=== PATIENT | female | born 2000 | race African-American/Black ===

== ENCOUNTER 2023-12-28 21:34 | Inpatient (IN) | payer OTHER, SELFPAY ==
[2023-12-28 22:05] LABS: Absolute Basophils 0.3 K/uL (0-0.5); Absolute Lymphocytes (CBC) 0.3 K/uL (0.7-4.9); Absolute Neutrophil 40.2 K/uL (1.8-8.0); Basophils % 0.7 % (0-1.3); Hematocrit 26.6 % (36.0-45.0); Hemoglobin 7.9 g/dL (12.0-15.0); Lymphocytes % 0.8 % (15.3-44.8); MCH 18.7 pg (27.0-35.0); MCHC 29.5 g/dL (32.0-36.0); MCV 63.3 fL (80-100); MPV 8.1 fL (7.6-11.3); Monocytes % 2.3 % (3.3-12.3); Neutrophils % 96.2 % (41.7-73.7); Platelets 528 thou/uL (152-406); RBC Red Blood Cell Count 4.21 M/uL (3.86-4.86); Red Cell Distribution Width 17.8 % (12.1-15.2)
[2023-12-28] MEDS ORDERED: ONDANSETRON 4 MG/2 ML VIAL ONE (22:09)
[2023-12-28] MEDS ORDERED: NA CHLORIDE 0.9% 1,000 ML ONE ×2 (22:09→22:48)
[2023-12-28] MEDS ORDERED: FAMOTIDINE 20 MG/2 ML VIAL IV ONE (22:09)
[2023-12-28 22:19] LABS: Albumin 4.2 g/dL (3.4-5.0); Albumin/Globulin Ratio 0.8 (1.1-1.8); Anion Gap 11.5 mEq/L (5.0-15.0); Bilirubin Total 0.7 mg/dL (0.2-1.0); Globulin 5.2 g/dL (2.3-3.5); Potassium 3.5 mEq/L (3.5-5.1); Protein, Total 9.4 g/dL (6.4-8.2)
[2023-12-28 22:46] LABS: Band Neutrophils 5 % (0-1); Differential Total Cells Count 100; Lymphocytes 2 % (15-42); Monocytes 2 % (0-10); Segmented Neutrophils 90 % (40-80)
[2023-12-28 22:47] LABS: Metamyelocytes 1 % (0-0); Platelet Estimate INCR; Toxic Granulation 1+
[2023-12-28 22:48] LABS: Blood Morphology Comment NOTED (NOT SEEN); Hypochromasia 1+; Microcytosis 2+; Polychromasia 2+
[2023-12-28 22:56] LABS: Specific Gravity 1.023 (1.005-1.030); Urine Bacteria <20 /HPF (<20); Urine Bilirubin NEGATIVE (Negative); Urine Blood Negative (Negative); Urine Clarity Extremely Turbid (Clear); Urine Color Light-Orange (Yellow); Urine Culture Reflex Order REFLEXED; Urine Glucose NEGATIVE (Negative); Urine Ketones TRACE (Negative); Urine Microscopic Reflex YN ORDER UMIC; Urine Mucus 2+ /HPF (None Seen); Urine Nitrite NEGATIVE (Negative); Urine Protein 1+ (Negative); Urine RBC <5 /HPF (None Seen); Urine Urobilinogen Normal (Normal); Urine WBC 20-50 /HPF (<5)
[2023-12-28 23:50] LABS: PT Prothrombin Time 17.1 SECONDS (9.5-12.5); PTT, Activated Partial Thromb 25.9 SECONDS (24.3-36.9); Protime INR 1.58
--- NOTE | 2023-12-29 00:55 | ER ---
Nurse's Notes [facility] Name: Yvonne Pereyra Age: 23 yrs Sex: Female : 2000 Arrival Date: 12/28/2023 Time: 21:34 Bed 6 Private MD: Diagnosis: Infectious gastroenteritis and colitis, unspecified;Severe sepsis without septic shock Presentation: 12/27 21:37 Chief complaint: EMS states: Pt reports N/V/D since this morning. Pt was given 4mg of jb4 zofran and started on 1L of LR via 20g to the RAC. Coronavirus screen: At this time, the client does not indicate any symptoms associated with coronavirus-19. Ebola Screen: No symptoms or risks identified at this time. Initial Sepsis Screen: Does the patient meet any 2 criteria? HR > 90 bpm. Yes Does the patient have a suspected source of infection? No. Patient's initial sepsis screen is negative. Risk Assessment: Do you want to hurt yourself or someone else? Patient reports no desire to harm self or others. Onset of symptoms was December 28, 2023. Transition of care: patient was not received from another setting of care. 21:37 Method Of Arrival: Ambulatory jb4 21:37 Acuity: VIVEK 3 jb4 Triage Assessment: 21:39 General: Appears in no apparent distress. comfortable, Behavior is calm, cooperative, jb4 appropriate for age. Pain: Denies pain. Neuro: Level of Consciousness is awake, alert, obeys commands, Oriented to person, place, time, situation. Cardiovascular: Patient's skin is warm and dry. Respiratory: Airway is patent Respiratory effort is even, unlabored, Respiratory pattern is regular, symmetrical. GI: Reports diarrhea, nausea, vomiting. Historical: - Allergies: 21:39 No Known Allergies; jb4 - PMHx: 21:39 None; jb4 - PSHx: 21:39 None; jb4 - Immunization history:: Adult Immunizations up to date. - Infectious Disease History:: Denies. - Social history:: Smoking status: Patient denies any tobacco usage or history of. Screenin:41 [facility] ED Fall Risk Assessment (Adult) History of falling in the last 3 months, tm6 including since admission No falls in past 3 months (0 pts). [facility] ED Fall Risk Assessment (Adult) Confusion or Disorientation No (0 pts) Intoxicated or Sedated No (0 pts) Impaired Gait No (0 pts) Mobility Assist Device Used No (0 pt) Altered Elimination No (0 pt) Score/Fall Risk Level 0 - 2 = Low Risk Oriented to surroundings, Maintained a safe environment. Abuse screen: Denies threats or abuse. Denies injuries from another. Nutritional screening: No deficits noted. Tuberculosis screening: No symptoms or risk factors identified. Assessment: 21:41 General: Appears in no apparent distress. Behavior is calm, cooperative. Pain: tm6 Complains of pain in right upper quadrant and right lower quadrant Pain currently is 7 out of 10 on a pain scale. Quality of pain is described as aching, Also complains of nausea. Neuro: No deficits noted. Level of Consciousness is awake, alert, obeys commands, Oriented to person, place, time, situation. Cardiovascular: No deficits noted. Patient's skin is warm and dry. Respiratory: Airway is patent Respiratory effort is even, unlabored, Respiratory pattern is regular, symmetrical. GI: Abdomen is flat, non-distended, Abd is soft Abdomen is tender to palpation in right upper quadrant and right lower quadrant Reports lower abdominal pain, upper abdominal pain, diarrhea, nausea, vomiting. : No signs and/or symptoms were reported regarding the genitourinary system. EENT: No signs and/or symptoms were reported regarding the EENT system. Derm: No signs and/or symptoms reported regarding the dermatologic system. Musculoskeletal: No signs and/or symptoms reported regarding the musculoskeletal system. 22:52 Reassessment: Patient and/or family updated on plan of care and expected duration. Pain tm6 level reassessed. Patient is alert, oriented x 3, equal unlabored respirations, skin warm/dry/pink. 23:49 Reassessment: Patient and/or family updated on plan of care and expected duration. Pain tm6 level reassessed. Patient is alert, oriented x 3, equal unlabored respirations, skin warm/dry/pink. 12/28 00:51 Reassessment: Patient and/or family updated on plan of care and expected duration. Pain tm6 level reassessed. Patient is alert, oriented x 3, equal unlabored respirations, skin warm/dry/pink. Vital Signs: 12/27 21:35 BP 140 / 73; Pulse 99; Resp 18 S; Temp 98.7; Pulse Ox 100% on R/A; rv1 21:37 Weight 81.65 kg; Height 5 ft. 4 in. ; jb4 22:52 BP 128 / 62; Pulse 101; Pulse Ox 100% on R/A; tm6 23:48 Pulse 103; Pulse Ox 100% ; tm6 23:49 BP 132 / 77; tm6 12/28 00:50 BP 135 / 78; Pulse 114; Pulse Ox 100% on R/A; tm6 04 21:37 Body Mass Index 30.90 (81.65 kg, 162.56 cm) jb4 ED Course: 12/27 21:35 Patient arrived in ED. rv1 21:39 Triage completed. jb4 21:39 Arm band placed on right wrist. jb4 21:41 Jil Duron, MARIE is Primary Nurse. tm6 21:41 Patient has correct armband on for positive identification. Placed in gown. Bed in low tm6 position. Call light in reach. Side rails up X2. Provided Education on: plan of care. Client placed on continuous cardiac and pulse oximetry monitoring. NIBP monitoring applied. Pulse ox on. NIBP on. Door closed. Noise minimized. Warm blanket given. 21:41 Maintain EMS IV. Dressing intact. Good blood return noted. Site clean \T\ dry. Gauge \T\ tm 6 site: 20g RAC. 21:49 [facility] sb4 21:49 Richard Romero MD is Attending Physician. sb4 21:55 CBC with Diff Sent. tm6 21:55 CMP Sent. tm6 21:55 Lipase Sent. tm6 22:47 Urinalysis w/ reflexes Sent. tm6 22:47 Test, Urine Sent. tm6 23:28 Blood Culture Adult (2) Sent. rv1 23:28 Lactate w/ 2H reflex if indic. Sent. rv1 23:28 PT-INR Sent. rv1 23:28 Ptt, Activated Sent. rv1 23:42 CT Abd/Pelvis - IV Contrast Only In Process Unspecified. EDMS 12/28 00:11 Notified Nurse Practitioner and/or Physician [employer] of a critical lab result(s), tm6 Lactate 2.6. 00:53 Roby Bhakta MD is Hospitalizing Provider. sb4 01:52 No provider procedures requiring assistance completed. Patient admitted, IV remains in tm6 place. Administered Medications: 12/27 22:17 Drug: NS 0.9% IV 1000 ml IV at 1 bolus Per protocol; 1000 mL bolus Route: IV; Rate: 1 tm6 bolus; Site: right antecubital; 12/28 01:27 Follow up: IV Status: Completed infusion; IV Intake: 1000ml tm6 12/27 22:17 Drug: Famotidine IVP 20 mg IVP once; dilute with 10 mL 0.9% NaCl; give over 2 minutes tm6 Route: IVP; Site: right antecubital; 22:18 Drug: Ondansetron IVP 4 mg IVP once; over 2 minutes Route: IVP; Site: right antecubital;tm6 22:52 Drug: NS 0.9% IV 1000 ml IV at 1 bolus Per protocol; 1000 mL bolus Route: IV; Rate: 1 tm6 bolus; Site: right antecubital; 12/28 01:27 Follow up: IV Status: Completed infusion; IV Intake: 1000ml tm6 01:10 Drug: Rocephin IV 1 grams IV at calculated rate once; Given slow IV push per pharmacy tm6 instructions Route: IV; Rate: calculated rate; Site: right antecubital; 01:10 Drug: metroNIDAZOLE IVPB 500 mg 100 ml IVPB at 200 ml/hr once over 30 mins Volume: 100 tm6 ml; Route: IVPB; Rate: 200 ml/hr; Infused Over: 30 mins; Site: right antecubital; Medication: 12/27 21:41 VIS not applicable for this client. tm6 Intake: 12/28 01:27 IV: 1000ml; Total: 1000ml. tm6 01:27 IV: 1000ml; Total: 2000ml. tm6 Outcome: 00:54 Decision to Hospitalize by Provider. sb4 01:52 Admitted to ER Hold. Please see [facility] for further documentation. tm6 01:52 Condition: stable 01:52 Instructed on the need for admit, 12:23 Patient left the ED. iw Signatures: Dispatcher [employer] Gay Hodge RN RN iw Bryson, James, RN RN jbPoppy Villegas, PAWarner PA-C sb4 Barbra Nur rv1 Jil Duron RN RN tm6
--- NOTE | 2023-12-29 00:55 | EDPHYS ---
Physician Documentation [facility] Name: Yvonne Pereyra Age: 23 yrs Sex: Female : 2000 Arrival Date: 12/28/2023 Time: 21:34 Bed 6 Private MD: ED Physician Richard Romero HPI: 12/27 22:17 This 23 yrs old Black Female presents to ER via Ambulatory with complaints of sb4 Nausea/Vomiting/Diarrhea. 22:17 The patient presents to the emergency department with nausea, vomiting, diarrhea, sb4 abdominal pain. Onset: The symptoms/episode began/occurred this morning. Possible causes: unknown. The symptoms are aggravated by nothing. The symptoms are alleviated by nothing. The patient has not experienced similar symptoms in the past. The patient has not recently seen a physician. Historical: - Allergies: 21:39 No Known Allergies; jb4 - PMHx: 21:39 None; jb4 - PSHx: 21:39 None; jb4 - Immunization history:: Adult Immunizations up to date. - Infectious Disease History:: Denies. - Social history:: Smoking status: Patient denies any tobacco usage or history of. ROS: 22:17 Constitutional: Negative for fever, chills, and weight loss, sb4 22:17 Abdomen/GI: Positive for abdominal pain, nausea, vomiting, and diarrhea, 22:17 All other systems are negative, Exam: 22:17 Head/Face: Normocephalic, atraumatic. Eyes: Extra-ocular motions intact. Periorbital sb4 areas with no swelling, redness, or edema. ENT: Mucous membranes moist. Cardiovascular: Regular rate and rhythm with a normal S1 and S2. Respiratory: Lungs have equal breath sounds bilaterally, clear to auscultation and percussion. No rales, rhonchi or wheezes noted. No increased work of breathing, no retractions or nasal flaring. Abdomen/GI: Soft, non-tender, no distension. Skin: Warm, dry with normal turgor. Normal color with no rashes, no lesions, and no evidence of cellulitis. MS/ Extremity: Pulses equal, no cyanosis. Neurovascular intact. Full, normal range of motion. Neuro: Awake and alert, GCS 15, oriented to person, place, time, and situation. Motor strength 5/5 in all extremities. Sensory grossly intact. 22:17 Constitutional: The patient appears alert, awake, uncomfortable, Vital Signs: 21:35 BP 140 / 73; Pulse 99; Resp 18 S; Temp 98.7; Pulse Ox 100% on R/A; rv1 21:37 Weight 81.65 kg; Height 5 ft. 4 in. ; jb4 22:52 BP 128 / 62; Pulse 101; Pulse Ox 100% on R/A; tm6 23:48 Pulse 103; Pulse Ox 100% ; tm6 23:49 BP 132 / 77; tm6 04 00:50 BP 135 / 78; Pulse 114; Pulse Ox 100% on R/A; tm6 12/27 21:37 Body Mass Index 30.90 (81.65 kg, 162.56 cm) jb4 MDM: 12/27 21:49 Patient medically screened. sb4 22:17 Differential diagnosis: gastritis, gastroenteritis. sb4 12/28 00:53 Data reviewed: vital signs, nurses notes, lab test result(s), radiologic studies, I sb4 have discussed the patient's presentation/case with the attending Emergency Department Physician; and as a result, I will admit patient. Consideration of Admission/Observation Patient was admitted/placed on observation. Counseling: I had a detailed discussion with the patient and/or guardian regarding the historical points, exam findings, and any diagnostic results supporting the discharge/admit diagnosis, lab results, radiology results, the need for further work-up and treatment in the hospital. 12/27 21:49 Order name: CBC with Diff; Complete Time: 22:58 4 12/27 21:49 Order name: CMP; Complete Time: 22:28 sb4 12/27 21:49 Order name: Lipase; Complete Time: 22:28 sb4 12/27 21:49 Order name: Test, Urine; Complete Time: 22:58 sb4 12/27 21:49 Order name: Urinalysis w/ reflexes; Complete Time: 22:59 sb4 12/27 22:10 Order name: Manual Differential; Complete Time: 22:58 EDMS 12/27 22:59 Order name: Blood Culture Adult (2); Complete Time: 10:50 4 12/27 22:59 Order name: Lactate w/ 2H reflex if indic.; Complete Time: 00:11 sb4 12/27 22:59 Order name: PT-INR; Complete Time: 23:53 sb4 12/27 22:59 Order name: Ptt, Activated; Complete Time: 23:53 sb4 12/27 23:01 Order name: Urine Culture; Complete Time: 10:50 EDMS 12/28 01:15 Order name: CBC with Automated Diff EDMS 12/28 01:15 Order name: CBC with Automated Diff; Complete Time: 10:50 EDMS 12/28 01:15 Order name: Comprehensive Metabolic Panel EDMS 12/28 01:15 Order name: Comprehensive Metabolic Panel; Complete Time: 10:50 EDMS 12/28 02:45 Order name: Lactate Sepsis 2 HR Follow-up; Complete Time: 10:50 EDMS 12/28 02:51 Order name: Magnesium; Complete Time: 10:50 EDMS 12/28 02:51 Order name: Thyroid Stimulating Hormone; Complete Time: 10:50 EDMS 12/28 02:51 Order name: Transferrin Sat/Iron Binding; Complete Time: 10:50 EDMS 12/28 09:20 Order name: CBC with Automated Diff; Complete Time: 10:50 EDMS 12/28 09:20 Order name: Basic Metabolic Panel; Complete Time: 10:50 EDMS 12/28 09:20 Order name: Magnesium; Complete Time: 10:50 EDMS 12/28 09:54 Order name: Manual Differential; Complete Time: 10:50 EDMS 12/28 09:54 Order name: CBC Smear Scan; Complete Time: 10:50 EDMS 12/28 10:37 Order name: Type and Screen EDMS 12/27 22:44 Order name: CT Abd/Pelvis - IV Contrast Only sb4 12/28 00:56 Order name: Chest Pa And Lat (2 Views) XRAY sb4 12/27 21:49 Order name: IV Saline Lock; Complete Time: 21:52 sb4 12/27 21:49 Order name: Labs collected and sent; Complete Time: 21:52 sb4 Administered Medications: 12/27 22:17 Drug: NS 0.9% IV 1000 ml IV at 1 bolus Per protocol; 1000 mL bolus Route: IV; Rate: 1 tm6 bolus; Site: right antecubital; 12/28 01:27 Follow up: IV Status: Completed infusion; IV Intake: 1000ml tm6 12/27 22:17 Drug: Famotidine IVP 20 mg IVP once; dilute with 10 mL 0.9% NaCl; give over 2 minutes tm6 Route: IVP; Site: right antecubital; 22:18 Drug: Ondansetron IVP 4 mg IVP once; over 2 minutes Route: IVP; Site: right antecubital;tm6 22:52 Drug: NS 0.9% IV 1000 ml IV at 1 bolus Per protocol; 1000 mL bolus Route: IV; Rate: 1 tm6 bolus; Site: right antecubital; 12/28 01:27 Follow up: IV Status: Completed infusion; IV Intake: 1000ml tm6 01:10 Drug: Rocephin IV 1 grams IV at calculated rate once; Given slow IV push per pharmacy tm6 instructions Route: IV; Rate: calculated rate; Site: right antecubital; 01:10 Drug: metroNIDAZOLE IVPB 500 mg 100 ml IVPB at 200 ml/hr once over 30 mins Volume: 100 tm6 ml; Route: IVPB; Rate: 200 ml/hr; Infused Over: 30 mins; Site: right antecubital; Disposition: 02:33 Co-signature as Attending Physician, Richard Romero MD I agree with the assessment sp4 and plan of care. I reviewed the patient's care provided by Advanced Practice Provider \T\ agree w/ the diagnosis \T\ care plan. I personally saw the pt \T\ performed a substantive portion of the visit, incldng all aspects of the (History/Exam/Medical Decision Making). Disposition Summary: 12/29/23 00:54 Hospitalization Ordered Notes: Hospitalization Status: Observation sb4 Provider: Roby Bhakta sb4 Condition: Fair sb4 Problem: new sb4 Symptoms: are unchanged sb4 Bed/Room Type: Standard sb4 Location: Telemetry/MedSurg (Inpatient)(12/29/23 11:10) eb Room Assignment: 427(12/29/23 11:10) eb Diagnosis - Infectious gastroenteritis and colitis, unspecified sb4 - Severe sepsis without septic shock sb4 Discharge Instructions: - Discharge Summary Sheet tm6 Forms: - Medication Reconciliation Form sb4 - SBAR form sb4 - Leadership Thank You Letter sb4 Signatures: Dispatcher AmadorSylvia Cruz RN RN Berny Yang RN RN jb4 Perla Flores Wendy wm Poppy Durand PA-C PA-C sb4 Richard Romero MD MD sp4 Jil Duron RN RN tm6 Corrections: (The following items were deleted from the chart) 12/27 22:45 22:45 Abdomen Pelvis W Con+CT.RAD.BRZ ordered. EDMS EDMS 12/28 01:21 00:54 sb4 wm 01:34 01:21 420 wm cg 01:36 00:54 Telemetry/MedSurg (observation) sb4 cg 01:36 01:34 cg cg 11:10 01:36 [facility] ER HOLD cg eb 11:10 01:36 ERHOLD- cg eb
[2023-12-29] MEDS ORDERED: CEFTRIAXONE 1000 MG/VIAL ONE (01:01)
[2023-12-29] MEDS ORDERED: METRONIDAZOLE 500mg IVPB 500 MG/100 ML BAG IV ONE ×2 (01:01→08:06)
--- NOTE | 2023-12-29 01:22 | P.HP ---
Certification for Inpatient Patient admitted to: Observation With expected LOS: <2 Midnights Patient will require the following post-hospital care: None Practitioner: I am a practitioner with admitting privileges, knowledge of patient current condition, hospital course, and medical plan of care. Services: Services provided to patient in accordance with Admission requirements found in Title 42 Section 412.3 of the Code of Federal Regulations Patient History Date of Service: 12/29/23 Reason for admission: Nausea and vomiting History of Present Illness: 23-year-old female with no past medical history presents today because of recurrent nausea and vomiting as well as nonspecific abdominal pain. She states her symptoms were preceded with onset of bouts of diarrhea. Diarrhea small watery stool nonbloody, since the last 2 to 3 days. She stated abdominal pain is mild in the epigastric area associated with periods of vomiting. She denies similar episodes in the past. She denies any fever or chills. She denies any dysuria or diarrhea. She states she has a history of chronic anemia that was diagnosed since age 16. She admitted to [facility] She states she has not had a gynecological workup in the past but always have craving for ice. On arrival in the ED she was mildly tachycardic at 99 but stable BP, afebrile. EKG was unremarkable, urinalysis positive for UTI with large leukocyte esterase, CT of the abdomen shows nonspecific enteritis as well as mild thickening of the bladder consistent with cystitis. Serum WBC was elevated at 41,000, hemoglobin low at 7.9, BMP shows creatinine of 1.15. Lactic acid elevated at 2.6. She has been admitted for further management . Allergies No Known Allergies Allergy (Unverified 12/29/23 01:40) Home medications list reviewed: Yes - Past Medical/Surgical History Has patient received pneumonia vaccine in the past: No -: None Past Surgical History: Reviewed- Non-Contributory - Family History Family History: Reviewed- Non-Contributory - Social History Smoking Status: Never smoker Place of Residence: Home Review of Systems Gastrointestinal: Nausea, Vomiting, Abdominal Pain, Diarrhea Genitourinary: Frequency Neurological: Weakness Physical Examination - Physical Exam General: Alert, In no apparent distress, Oriented x3 HEENT: Atraumatic, Normocephalic, PERRLA Neck: 2+ carotid pulse no bruit, JVD not distended Respiratory: Clear to auscultation bilaterally, Normal air movement Cardiovascular: No edema, Normal pulses, Regular rate/rhythm, Normal S1 S2 Gastrointestinal: Normal bowel sounds, Soft and benign, Non-distended, No ascites, No masses Musculoskeletal: No clubbing, No tenderness Neurological: Normal gait, Normal speech, Normal strength at 5/5 x4 extr, Normal tone - Studies Laboratory Data (last 24 hrs) 12/28/23 12/28/23 12/28/23 23:20 21:53 21:53 WBC 41.80 H Hgb 7.9 L Hct 26.6 L Plt Count 528 H PT 17.1 H INR 1.58 APTT 25.9 Sodium 135 L Potassium 3.5 BUN 14 Creatinine 1.15 H Glucose 110 H Total Bilirubin 0.7 AST 10 L ALT 21 Alkaline Phosphatase 71 Lipase 16 Assessment and Plan - Problems (Diagnosis) (1) Acute sepsis Current Visit: Yes Status: Acute (2) UTI (urinary tract infection) Current Visit: Yes Status: Acute - Plan Impression Acute sepsis UTI Presumed gastroenteritis Marked leukocytosis at 41,000 Chronic anemia Acute kidney injurylikely prerenal Plan Colitis/UTIstart gentle IV fluid Cipro antibiotics with cefepime and Flagyl Follow urine culture Add Pepcid twice daily for presumed gastritis Follow stool for ova parasite if watery specimen/C. difficile SCDs Follow WBC Chronic anemiastool for occult blood Obtain iron profile May be due to heavy menorrhagia Acute kidney injuryObtain TSH Mild creatinine elevation, follow with hydration - Advance Directives Does patient have a Living Will: No Does patient have a Durable POA for Healthcare: No Physician Review: Patient Assessed, Agree with Above Assessment and Plan
[2023-12-29] MEDS: D5LR 1,000 ML IV SCH ×2 (02:00→13:55)
[2023-12-29] MEDS ORDERED: MELATONIN 5 MG TABLET PO ONE (02:05)
[2023-12-29] MEDS ORDERED: D5LR 1,000 ML IV ONE (02:05)
[2023-12-29 02:07] VITALS: BMI 30.9
[2023-12-29] MEDS ORDERED: ONDANSETRON 4 MG/2 ML VIAL ONE (02:37)
[2023-12-29] MEDS ORDERED: MORPHINE 2 MG/ML SYR ONE ×2 (02:38→08:26)
[2023-12-29] MEDS: ONDANSETRON 4 MG/2 ML VIAL IV PRN (02:45)
[2023-12-29] MEDS: MELATONIN 5 MG TABLET PO PRN (02:45)
[2023-12-29] MEDS: MORPHINE 2 MG/ML SYR IV PRN (02:45)
[2023-12-29 02:51] LABS: Iron < 10.0 ug/dL (50-170); Magnesium 1.3 mg/dL (1.6-2.4); Thyroid Stimulating Hormone 0.435 uIU/mL (0.358-3.740); Transferrin 327 mg/dL (200-360)
--- NOTE | 2023-12-29 07:10 | P.PN ---
Date of Service: 12/29/23 Subjective: tolerated some full liquids this morning no BM since admission minimal abdominal pain denies any bleeding reports heavy menstrual periods ROS: 10 point ROS as noted above, otherwise negative Physical Exam: GEN: Alert, oriented, NAD, does not appear toxic HEENT: Normal conjunctiva, sclera anicteric CV: mild sinus tachycardia 90-105, no murmur Pulm: Nonlabored respirations on room air, clear bilaterally ABD: Soft, mild diffuse tenderness, nondistended Integumentary: No rashes, no petechiae Neuro: Normal speech, normal affect vitals reviewed Problem List: Sepsis, likely secondary to suspected acute cystitis / enteritis acute on chronic anemia / Severe iron deficiency anemia mild JESUS, likely pre-renal Sepsis, likely secondary to suspected acute cystitis / enteritis Reports nonspecific abd pain with nausea/vomiting. +diarrhea for 2-3 days. now with mild abd pain; +no BM since admission CT abd (12/28): mildly prominent fluid filled loops of small bowel; possible enteritis. no obstruciton. mild wall thickening of urinary bladder; possible distention / cystitis denies UTI Symptoms suspect elevated lactate is more secondary to significant anemia and dehydration - vomiting/diarrhea leukocytosis - infectious vs reactive significantly elevated no B symptoms on ROS, no family history of cancers denies family history of sickle cell continue empiric cefepime / flagyl (12/28-) afebrile, +leukocytosis 41.8 (12/28) ID consult c-diff test pending PRN analgesics / antiemetics continue pepcid continue IV fluids full liquid diet advance as tolerated patient ate wings and drank "quite a bit" of alcohol the night before check blood smear doubt malignancy,will pursue further workup if not improved acute on chronic anemia / Severe iron deficiency anemia reports hx of chronic anemia since 16. Reports infrequent heavy mestrual bleedings but has not had gynecological workup in past. Reports always has craving for ice iron studies consistent with severe iron deficiency anemia (iron 1.3, tsat% 2.2%) last day of menstruation was ~5 days ago no obvious bleeding hgb 7.9 -> 5.7 (12/28) ; suspect initial was hemeconcentrated due to hypovolemia, and 5.7 is closer to baseline especially given how asymptomatic she is, with normal BP, and only mild tachycardia mother states she was "walking around just fine" when she (mother) had hgb of 4.8 in the past transfuse 1uPRBC. repeat H&H post transfusion avoid iv iron at this time given concern for sepsis / severe leukocytosis mild JESUS, likely pre-renal creatinine 1.15 continue IV fluids with d5/LR continue to monitor renal function Code: Full Dispo: Home, ~2 days Pending further workup / hgb stabilizes / culture results
[2023-12-29] MEDS ORDERED: CEFEPIME 1 GM/VIAL ONE (08:06)
[2023-12-29] MEDS ORDERED: NA CHLORIDE 0.9% 100 ML ONE (08:06)
[2023-12-29] MEDS ORDERED: FAMOTIDINE 20 MG/2 ML VIAL IV ONE (08:06)
[2023-12-29] MEDS: SOD FERRIC GLUC COMPLX/SUCROSE 125 MG in NA CHLORIDE 0.9% 100 ML IV SCH (08:46)
[2023-12-29] MEDS: METRONIDAZOLE 500mg IVPB 500 MG/100 ML BAG IV SCH (08:47)
[2023-12-29] MEDS: FAMOTIDINE 20 MG TAB PO SCH (08:48)
[2023-12-29] MEDS: CEFEPIME 1 GM in NA CHLORIDE 0.9% 100 ML IV SCH (08:48)
[2023-12-29 09:10] LABS: Absolute Lymphocytes (CBC) 0.9 K/uL (0.7-4.9); Absolute Monocytes 1.7 K/uL (0.1-1.3); Absolute Neutrophil 42.8 K/uL (1.8-8.0); Basophils % 0.1 % (0-1.3); Hematocrit 19.6 % (36.0-45.0); Lymphocytes % 1.9 % (15.3-44.8); MCH 18.3 pg (27.0-35.0); MCV 63.2 fL (80-100); MPV 7.7 fL (7.6-11.3); Monocytes % 3.8 % (3.3-12.3); Neutrophils % 94.2 % (41.7-73.7); Platelets 427 thou/uL (152-406)
[2023-12-29 09:19] LABS: Anion Gap 8.5 mEq/L (5.0-15.0); Magnesium 1.4 mg/dL (1.6-2.4); Potassium 3.5 mEq/L (3.5-5.1)
[2023-12-29 09:20] LABS: Hemoglobin 5.7 g/dL (12.0-15.0)
[2023-12-29 09:53] LABS: Band Neutrophils 13 % (0-1); Differential Total Cells Count 100; Lymphocytes 3 % (15-42); Metamyelocytes 3 % (0-0); Monocytes 3 % (0-10); Platelet Estimate INCR; Segmented Neutrophils 79 % (40-80); White Blood Cell Scan OK (OK)
[2023-12-29 09:54] LABS: Blood Morphology Comment NOTED (NOT SEEN); Dohle Bodies PRESENT; Hypochromasia 2+; Microcytosis 2+
[2023-12-29] MEDS ORDERED: NA CHLORIDE 0.9% 250 ML IV SCH (10:00)
[2023-12-29] MEDS ORDERED: NA CHLORIDE 0.9% 250 ML ONE (11:11)
[2023-12-29 15:41] LABS: Hematocrit 24.9 % (36.0-45.0); Hemoglobin 7.6 g/dL (12.0-15.0)
--- NOTE | 2023-12-30 08:36 | P.PN ---
Date of Service: 12/30/23 Subjective: watery BM overnight ~4-5 am; green/yellow in color Reports now feeling better afterwards felt some improvement in strength after transfusion. Able to move around more otherwise no new issues afebrile ROS: 10 point ROS as noted above, otherwise negative Physical Exam: GEN: Alert, oriented, NAD, does not appear toxic HEENT: Normal conjunctiva, sclera anicteric CV: mild sinus tachycardia 90-105, no murmur Pulm: Nonlabored respirations on room air, clear bilaterally ABD: Soft, mild lower abdominal tenderness, nondistended Integumentary: No rashes, no petechiae Neuro: Normal speech, normal affect vitals reviewed Problem List: Sepsis, likely secondary to suspected acute cystitis / enteritis acute on chronic anemia / Severe iron deficiency anemia mild JESUS, likely pre-renal; resolved Sepsis, likely secondary to suspected acute cystitis / enteritis Reports nonspecific abd pain with nausea/vomiting. +diarrhea for 2-3 days. now with mild abd pain; +no BM since admission CT abd (12/28): mildly prominent fluid filled loops of small bowel; possible enteritis. no obstruciton. mild wall thickening of urinary bladder; possible distention / cystitis suspect elevated lactate is more secondary to significant anemia and dehydration - vomiting/diarrhea leukocytosis - infectious vs reactive significantly elevated no B symptoms on ROS, no family history of cancers. denies UTI Symptoms denies family history of sickle cell blood smear favors reactive leukocytosis continue empiric cefepime / flagyl (12/28-) afebrile, leukocytosis improving ID consulted c-diff test pending PRN analgesics / antiemetics continue pepcid continue IV fluids full liquid diet; advance as tolerated patient ate wings and drank "quite a bit" of alcohol the night before admission doubt malignancy,will pursue further workup if not improved acute on chronic anemia / Severe iron deficiency anemia reports hx of chronic anemia since 16. Reports infrequent heavy mestrual bleedings but has not had gynecological workup in past. Reports always has craving for ice iron studies consistent with severe iron deficiency anemia (iron 1.3, tsat% 2.2%) last day of menstruation was ~5 days ago. no obvious bleeding noted on exam hgb down to 5.7 (12/28); suspect initial was hemeconcentrated due to hypovolemia, and 5.7 is closer to baseline especially given how asymptomatic she is, with normal BP, and only mild tachycardia mother states she was "walking around just fine" when she (mother) had hgb of 4.8 in the past s/p 1uPRBC (12/28). repeat H&H post transfusion - 7.6 hgb 7.6 -> 7.2 (12/29) watery BM overnight green/yellow in color. Denies bloody stools avoid iv iron at this time given concern for sepsis / severe leukocytosis. Given 1 bag on admission mild JESUS, likely pre-renal; resolved continue IV fluids with d5/LR continue to monitor renal function resolved Code: Full Dispo: Home, ~1-2 days Pending hgb stable / wbc improves
[2023-12-30 08:37] LABS: Absolute Basophils 0.1 K/uL (0-0.5); Absolute Eosinophils 0.3 K/uL (0-0.5); Absolute Lymphocytes (CBC) 0.6 K/uL (0.7-4.9); Absolute Monocytes 1.4 K/uL (0.1-1.3); Absolute Neutrophil 30.1 K/uL (1.8-8.0); Basophils % 0.2 % (0-1.3); Hematocrit 23.5 % (36.0-45.0); Hemoglobin 7.2 g/dL (12.0-15.0); Lymphocytes % 1.9 % (15.3-44.8); MCH 20.1 pg (27.0-35.0); MCHC 30.6 g/dL (32.0-36.0); MCV 65.7 fL (80-100); Monocytes % 4.4 % (3.3-12.3); Neutrophils % 92.5 % (41.7-73.7); Nucleated RBC Absolute Count 0.1 (0-0); Nucleated Red Blood Cells % 0.2 % (0-0); Platelets 406 thou/uL (152-406); RBC Red Blood Cell Count 3.58 M/uL (3.86-4.86); Red Cell Distribution Width 20.7 % (12.1-15.2)
[2023-12-30 09:08] LABS: Bilirubin Total 0.4 mg/dL (0.2-1.0)
[2023-12-30 09:09] LABS: Albumin 2.7 g/dL (3.4-5.0); Albumin/Globulin Ratio 0.7 (1.1-1.8); Ferritin 139.5 ng/mL (8-388); Protein, Total 6.7 g/dL (6.4-8.2)
[2023-12-30] MEDS: D5LR 1,000 ML IV SCH (15:19)
[2023-12-30] MEDS: POTASSIUM CL SA 10 MEQ TAB PO ONE (20:10)
[2023-12-30] MEDS: ACETAMINOPHEN 500 MG TAB PO PRN (22:28)
[2023-12-31 02:24] LABS: Absolute Basophils 0.1 K/uL (0-0.5); Absolute Eosinophils 0.3 K/uL (0-0.5); Absolute Lymphocytes (CBC) 0.8 K/uL (0.7-4.9); Absolute Monocytes 1.7 K/uL (0.1-1.3); Absolute Neutrophil 25.4 K/uL (1.8-8.0); Basophils % 0.2 % (0-1.3); Eosinophils % 1.1 % (0-4.4); Hematocrit 23.1 % (36.0-45.0); Hemoglobin 7.1 g/dL (12.0-15.0); Lymphocytes % 2.9 % (15.3-44.8); MCHC 30.6 g/dL (32.0-36.0); MCV 65.5 fL (80-100); MPV 7.7 fL (7.6-11.3); Monocytes % 5.9 % (3.3-12.3); Neutrophils % 89.9 % (41.7-73.7); Platelets 417 thou/uL (152-406); RBC Red Blood Cell Count 3.53 M/uL (3.86-4.86); Red Cell Distribution Width 21.1 % (12.1-15.2)
[2023-12-31 02:36] LABS: Magnesium 1.9 mg/dL (1.6-2.4); Potassium 3.2 mEq/L (3.5-5.1)
[2023-12-31 02:42] LABS: Albumin 2.5 g/dL (3.4-5.0); Albumin/Globulin Ratio 0.6 (1.1-1.8); Anion Gap 9.2 mEq/L (5.0-15.0); Bilirubin Total 0.4 mg/dL (0.2-1.0); Globulin 4.2 g/dL (2.3-3.5); Potassium 3.2 mEq/L (3.5-5.1); Protein, Total 6.7 g/dL (6.4-8.2)
--- NOTE | 2023-12-31 09:32 | P.PN ---
Date of Service: 12/31/23 Subjective: feels a little better today episode of vomiting shortly after waking up this morning tolerated some liquids yesterday. +some toast after throwing up some abdominal discomfort/soreness but feels more like muscle soreness. Worsened when having to get up/move. Feels like she had intense workout denies UTI symptoms. urine is clear-yellow in color afebrile ROS: 10 point ROS as noted above, otherwise negative Physical Exam: GEN: Alert, oriented, NAD, does not appear toxic CV: regular heart rate & rhythm, no murmur Pulm: Nonlabored respirations on room air, clear bilaterally ABD: Soft, mild-mod lower abdominal tenderness, nondistended Integumentary: No rashes, no petechiae Neuro: Normal speech, normal affect vitals reviewed Problem List: Sepsis, likely secondary to suspected acute cystitis / enteritis acute on chronic anemia / Severe iron deficiency anemia mild JESUS, likely pre-renal; resolved Sepsis, likely secondary to suspected acute cystitis / enteritis Reports nonspecific abd pain with nausea/vomiting. +diarrhea for 2-3 days. now with mild abd pain; +no BM since admission CT abd (12/28): mildly prominent fluid filled loops of small bowel; possible enteritis. no obstruciton. mild wall thickening of urinary bladder; possible distention / cystitis suspect elevated lactate is more secondary to significant anemia and dehydration - vomiting/diarrhea leukocytosis - infectious vs reactive significantly elevated no B symptoms on ROS, no family history of cancers. denies UTI Symptoms denies family history of sickle cell blood smear favors reactive leukocytosis urine cx (12/27): 3+ staph [employer] continue empiric cefepime / flagyl (12/28-) afebrile, leukocytosis improving ID consulted c-diff test pending PRN analgesics / antiemetics continue pepcid dc IV fluids ~noon full liquid diet; advance as tolerated patient ate wings and drank "quite a bit" of alcohol the night before admission doubt malignancy,will pursue further workup if not improved acute on chronic anemia / Severe iron deficiency anemia reports hx of chronic anemia since 16. Reports infrequent heavy mestrual bleedings but has not had gynecological workup in past. Reports always has craving for ice iron studies consistent with severe iron deficiency anemia (iron 1.3, tsat% 2.2%) last day of menstruation was ~5 days ago. no obvious bleeding noted on exam hgb down to 5.7 (12/28); suspect initial was hemeconcentrated due to hypovolemia, and 5.7 is closer to baseline especially given how asymptomatic she is, with normal BP, and only mild tachycardia mother states she was "walking around just fine" when she (mother) had hgb of 4.8 in the past s/p 1uPRBC (12/28). repeat H&H post transfusion - 7.6 hgb 7.2 -> 7.1 (12/30) watery BM 12/28 green/yellow in color. Denies bloody stools resume IV iron in afternoon. Given 1 bag on admission mild JESUS, likely pre-renal; resolved continue IV fluids with d5/LR continue to monitor renal function resolved Code: Full Dispo: Home, ~1-2 days Pending hgb stable / wbc improves tolerating diet
[2023-12-31] MEDS: ENSURE HIGH PROTEIN 237 ML CAN PO SCH (09:45)
[2023-12-31] MEDS: SOD FERRIC GLUC COMPLX/SUCROSE 125 MG in NA CHLORIDE 0.9% 100 ML IV SCH (13:06)
[2023-12-31] MEDS: CEFEPIME 2 GM in NA CHLORIDE 0.9% 100 ML IV SCH (16:28)
[2023-12-31] MEDS: POTASSIUM CL SA 10 MEQ TAB PO ONE (20:11)
[2023-12-31] MEDS: AMLODIPINE 5 MG TAB PO SCH (22:00)
[2023-12-31] MEDS: HYDRALAZINE HCL 20 MG/ML VIAL IV PRN (22:01)
[2024-01-01] MEDS: LORAZEPAM 0.5 MG TABLET PO PRN (03:04)
[2024-01-01] MEDS: POTASSIUM 25 MEQ EFFERV TAB PO ONE ×2 (03:36→12:17)
[2024-01-01] MEDS ORDERED: TRAMADOL HCL 50 MG TAB PO PRN (06:27)
[2024-01-01 06:42] LABS: Absolute Basophils 0.1 K/uL (0-0.5); Absolute Eosinophils 0.3 K/uL (0-0.5); Absolute Lymphocytes (CBC) 1.3 K/uL (0.7-4.9); Absolute Monocytes 2.3 K/uL (0.1-1.3); Absolute Neutrophil 20.9 K/uL (1.8-8.0); Basophils % 0.4 % (0-1.3); Eosinophils % 1.1 % (0-4.4); Hemoglobin 7.7 g/dL (12.0-15.0); Lymphocytes % 5.2 % (15.3-44.8); MCH 19.9 pg (27.0-35.0); MCHC 30.8 g/dL (32.0-36.0); MCV 64.7 fL (80-100); MPV 7.6 fL (7.6-11.3); Monocytes % 9.2 % (3.3-12.3); Neutrophils % 84.1 % (41.7-73.7); Nucleated Red Blood Cells % 0.1 % (0-0); Platelets 492 thou/uL (152-406); RBC Red Blood Cell Count 3.86 M/uL (3.86-4.86); Red Cell Distribution Width 21.1 % (12.1-15.2)
[2024-01-01 06:55] LABS: Albumin 2.3 g/dL (3.4-5.0); Albumin/Globulin Ratio 0.5 (1.1-1.8); Anion Gap 8.7 mEq/L (5.0-15.0); Bilirubin Total 0.4 mg/dL (0.2-1.0); Globulin 4.5 g/dL (2.3-3.5); Potassium 3.7 mEq/L (3.5-5.1); Protein, Total 6.8 g/dL (6.4-8.2)
--- NOTE | 2024-01-01 08:16 | P.PN ---
Date of Service: 01/01/24 Subjective: tolerated full liquid diet without issues yesterday abdominal discomfort improving. Doesn't feel as sore / tender today 2 BM overnight. More formed. Brown/green in color denies new / worsening issues ROS: 10 point ROS as noted above, otherwise negative Physical Exam: GEN: Alert, oriented, NAD CV: regular heart rate & rhythm, no murmur Pulm: Nonlabored respirations on room air, clear bilaterally ABD: Soft, minimal lower abdominal tenderness, nondistended Integumentary: No rashes, no petechiae Neuro: Normal speech, normal affect vitals reviewed Problem List: Sepsis, likely secondary to suspected acute cystitis / enteritis acute on chronic anemia / Severe iron deficiency anemia mild JESUS, likely pre-renal; resolved Sepsis, likely secondary to suspected acute cystitis / enteritis Reports nonspecific abd pain with nausea/vomiting. +diarrhea for 2-3 days. now with mild abd pain; +no BM since admission CT abd (12/28): mildly prominent fluid filled loops of small bowel; possible enteritis. no obstruciton. mild wall thickening of urinary bladder; possible distention / cystitis suspect elevated lactate is more secondary to significant anemia and dehydration - vomiting/diarrhea leukocytosis - infectious vs reactive significantly elevated no B symptoms on ROS, no family history of cancers. denies UTI Symptoms denies family history of sickle cell blood smear favors reactive leukocytosis urine cx (12/27): 3+ staph [employer] - sent to [facility] laboratory d/t machine broken. May delay cx results. continue empiric cefepime / flagyl (12/28-) afebrile, leukocytosis improving ID consulted continue pepcid IV fluids dc'd (12/30) advance to regular diet 12/31 patient ate wings and drank "quite a bit" of alcohol the night before admission doubt malignancy,will pursue further workup if not improved overall improving acute on chronic anemia / Severe iron deficiency anemia reports hx of chronic anemia since 16. Reports infrequent heavy menstrual bleedings but has not had gynecological workup in past. Reports always has craving for ice iron studies consistent with severe iron deficiency anemia (iron 1.3, tsat% 2.2%) last day of menstruation was ~5 days ago. no obvious bleeding noted on exam discussed with patient she should follow up with PCP and consider histopath tech as outpatient in the near future for further management/evaluation s/p 1uPRBC (12/28). repeat H&H post transfusion - 7.6 hgb relatively stable in 7s post transfusion 2 BM overnight. Brown/green in color. +more formed. Denies bloody stools resume IV iron. s/p 2 bags so far mild JESUS, likely pre-renal; resolved IV fluids dc'd 12/30 continue to monitor renal function resolved Code: Full Dispo: Home, ~1-2 days WBC <20k
--- NOTE | 2024-01-01 10:46 | P.CNS ---
Date of Consult: 01/01/24 Reason for Consult: UTI/enteritis, leukocytosis Chief Complaint: Nausea and vomiting History of Present Illness: "23-year-old female with no past medical history presents today because of recurrent nausea and vomiting as well as nonspecific abdominal pain. She states her symptoms were preceded with onset of bouts of diarrhea. Diarrhea small watery stool nonbloody, since the last 2 to 3 days. She stated abdominal pain is mild in the epigastric area associated with periods of vomiting. She denies similar episodes in the past. She denies any fever or chills. She denies any dysuria or diarrhea." Allergies No Known Allergies Allergy (Unverified 12/29/23 01:40) Home medications list reviewed: Yes Home Medications: NK [No Home Meds] 12/29/23 - Past Medical/Surgical History -: None - Social History Place of Residence: Home Review of Systems 10-point ROS is otherwise unremarkable General: Weakness Physical Examination Temp Pulse Resp BP Pulse Ox 99.5 F 94 H 15 117/66 99 01/01/24 08:00 01/01/24 08:00 01/01/24 08:00 01/01/24 08:00 01/01/24 08:00 General: Alert, In no apparent distress, Oriented x3 HEENT: Atraumatic, Normocephalic Respiratory: Clear to auscultation bilaterally, Normal air movement Cardiovascular: No edema, Regular rate/rhythm Gastrointestinal: Normal bowel sounds, Soft and benign, Non-distended, No tenderness Integumentary: No rashes Neurological: Normal speech, Normal tone, Normal affect Laboratory data - reviewed Microbiology data - reviewed Imagings Data: - Reviewed Conclusions/Impression: Problem List Sepsis secondary to Enteritis vs Acute Cystitis Iron Deficiency Anemia Sepsis secondary to Enteritis vs Acute Cystitis -Urine culture 12/27: Coagulase positive staph; >100,000 CFU/mL -Blood cultures 12/27: No growth to date -CT abdomen pelvis with contrast 12/27: " 1. Mildly prominent fluid-filled loops of small bowel, which can be seen with enteritis. No evidence of obstruction. 2. Mild wall thickening of the urinary bladder, which could be related to under distention or cystitis" -XR chest 12/28: "No acute cardiopulmonary disease is seen" - Leukocytosis [WBC 45.4 -> 32.5 -> 28.3 -> 24.9] -Currently on cefepime and Flagyl Recommendations - Enteritis: consider start on Cipro + Flagyl PO. Abx therapy x 7 days. tolerating regular diet. denies any nausea, vomiting or diarrhea today. - UTI: follow up with urine culture results [facility] Case discussed with Prashant Khanna
[2024-01-01] MEDS: metroNIDAZOLE 500 MG TABLET PO SCH (14:00)
[2024-01-01] MEDS: POTASS/SODIUM PHOSPHATE 1 PKT POWD.PACK PO SCH (18:14)
[2024-01-01] MEDS: CIPROFLOXACIN HCL 500 MG TAB PO SCH (20:17)
--- NOTE | 2024-01-01 20:29 | RAD REPORT ---
EXAM DESCRIPTION: CT - Abdomen Pelvis W Contrast - 12/29/2023 6:42 am CLINICAL HISTORY: ABD PAIN. COMPARISON: None. TECHNIQUE: CT of the abdomen and pelvis was performed following intravenous administration of iodina ruslan contrast. Oral contrast was not administered. Axial, coronal, and sagittal soft tissue window rec onstructions were created and sent to PACS. This exam was performed according to our departmental dose-optimization program, which includes autom ated exposure control, adjustment of the mA and/or kV according to patient size and/or use of iterati ve reconstruction technique. FINDINGS: Thoracic: No significant abnormality. Hepatobiliary: No concerning hepatic lesion identified. The portal veins are patent. The gallbladder is unremarkable. No biliary ductal dilatation. Pancreas: Unremarkable. Spleen: Unremarkable. Gastrointestinal: Scattered fluid-filled loops of small bowel in a nonobstructive pattern. No obvious transition point. Possible mild hyperemia in the lower mesenteric fat. No evidence of bowel obstruct ion. No free air or fluid collections. The appendix is not visualized. Adrenals: No abnormality identified in either adrenal gland. Renal: No concerning parenchymal abnormality in either kidney. No hydronephrosis or urolithiasis. Bladder/Reproductive: Mild urinary bladder wall thickening in the setting of underdistention. Vascular/Lymphatics: No lymphadenopathy identified by CT size criteria. Abdominal aorta is normal in caliber. Musculoskeletal: No concerning osseous lesion identified. Fluid / peritoneum: Trace pelvic and right lower quadrant free fluid. No free intraperitoneal air i dentified. IMPRESSION: 1. Mildly prominent fluid-filled loops of small bowel, which can be seen with enteriti s. No evidence of obstruction. 2. Mild wall thickening of the urinary bladder, which could be related to under distention or cysti tis. Electronically signed by: Nuzhat Alfred MD 12/29/2023 12:46 AM CDT Due to temporary technical issues with the PACS/Fluency reporting system, reports are being signed by the in house radiologists without review as a courtesy to insure prompt reporting. The interpreting radiologist is fully responsible for the content of the report.
--- NOTE | 2024-01-01 20:31 | RAD REPORT ---
EXAM DESCRIPTION: RAD - Chest Pa And Lat (2 Views) - 12/29/2023 1:36 am CLINICAL HISTORY: 23 years, Female, leukocytosis COMPARISON: None FINDINGS: 2 views of the chest (frontal and lateral views) were obtained. No prior films are availab le at this time for comparison. There is normal lung volume. Mediastinum: The cardiomediastinal silhouette demonstrate to be within normal limits. Lungs: No areas of consolidations or masses are identified. Heart: The heart is normal in size. Thoracic aorta: The thoracic aorta demonstrate to be normal. Pulmonary vasculature: The pulmonary vasculature is normal in distribution. Pleura: The costophrenic angles demonstrate to be sharp. Bones: The rest of the soft tissue and bony structures are unremarkable. Other: None. IMPRESSION: No acute cardiopulmonary disease is seen. Electronically signed by: Pavel Hirsch MD 12/29/2023 03:03 AM CDT Due to temporary technical issues with the PACS/Fluency reporting system, reports are being signed by the in house radiologists without review as a courtesy to insure prompt reporting. The interpreting radiologist is fully responsible for the content of the report.
[2024-01-02 07:16] LABS: Anion Gap 9.3 mEq/L (5.0-15.0); C-Reactive Protein 96.3 mg/L (<3.00); Magnesium 1.9 mg/dL (1.6-2.4); Potassium 3.3 mEq/L (3.5-5.1)
[2024-01-02 08:31] VITALS: TEMP 96.9
[2024-01-02 09:17] VITALS: BP 156/78
[2024-01-02] MEDS: POTASSIUM CL SA 10 MEQ TAB PO ONE (09:21)
[2024-01-02 09:49] LABS: Absolute Basophils 0.1 K/uL (0-0.5); Absolute Eosinophils 0.3 K/uL (0-0.5); Absolute Lymphocytes (CBC) 1.3 K/uL (0.7-4.9); Absolute Monocytes 2.3 K/uL (0.1-1.3); Absolute Neutrophil 14.2 K/uL (1.8-8.0); Basophils % 0.7 % (0-1.3); Eosinophils % 1.6 % (0-4.4); Hematocrit 25.5 % (36.0-45.0); Hemoglobin 7.8 g/dL (12.0-15.0); Lymphocytes % 7.3 % (15.3-44.8); MCH 20.1 pg (27.0-35.0); MCHC 30.5 g/dL (32.0-36.0); MCV 65.9 fL (80-100); MPV 7.9 fL (7.6-11.3); Monocytes % 12.8 % (3.3-12.3); Neutrophils % 77.6 % (41.7-73.7); Nucleated Red Blood Cells % 0.1 % (0-0); Platelets 434 thou/uL (152-406); RBC Red Blood Cell Count 3.87 M/uL (3.86-4.86)
[2024-01-02 09:57] LABS: Anisocytosis 2+; Blood Morphology Comment NOTED (NOT SEEN); Hypochromasia 3+; Platelet Estimate ADEQ; Polychromasia 1+; White Blood Cell Scan OK (OK)
--- NOTE | 2024-01-02 10:31 | P.DS ---
Admission Date: 12/29/23 Discharge Date: 01/02/24 Disposition: ROUTINE DISCHARGE Discharge Condition: FAIR Reason for Admission: Nausea and vomiting Vital Signs/Physical Exam: Temp Pulse Resp BP Pulse Ox 96.9 F 60 16 156/78 H 100 01/02/24 08:00 01/02/24 08:44 01/02/24 08:00 01/02/24 08:44 01/02/24 08:00 Laboratory Data at Discharge: WBC 18.30 thou/uL (4.3-10.9) H 01/02/24 06:33 Hgb 7.8 g/dL (12.0-15.0) L 01/02/24 06:33 Hct 25.5 % (36.0-45.0) L 01/02/24 06:33 Plt Count 434 thou/uL (152-406) H 01/02/24 06:33 PT 17.1 SECONDS (9.5-12.5) H 12/28/23 23:20 INR 1.58 12/28/23 23:20 APTT 25.9 SECONDS (24.3-36.9) 12/28/23 23:20 Sodium 132 mEq/L (136-145) L 01/02/24 06:33 Potassium 3.3 mEq/L (3.5-5.1) L 01/02/24 06:33 BUN 7 mg/dL (7-18) 01/02/24 06:33 Creatinine 0.50 mg/dL (0.55-1.02) L 01/02/24 06:33 Glucose 97 mg/dL (74-106) 01/02/24 06:33 Phosphorus 2.0 mg/dL (2.5-4.9) L 01/01/24 06:19 Magnesium 1.9 mg/dL (1.6-2.4) 01/02/24 06:33 Total Bilirubin 0.4 mg/dL (0.2-1.0) 01/01/24 06:19 AST 10 U/L (15-37) L 01/01/24 06:19 ALT 11 U/L (13-56) L 01/01/24 06:19 Alkaline Phosphatase 74 U/L (45-117) 01/01/24 06:19 Lipase 16 U/L (13-75) 12/28/23 21:53 Home Medications: Amlodipine [Norvasc*] 5 mg PO DAILY #30 tab 01/02/24 Ciprofloxacin HCl [Cipro] 500 mg PO BID #14 tab 01/02/24 Iron Polysaccharide Complex [Polysaccharide Iron] 150 mg PO DAILY #30 tab 01/02/24 metroNIDAZOLE [Flagyl*] 500 mg PO Q6HR #28 tab 01/02/24 New Medications: metroNIDAZOLE [Flagyl*] 500 mg PO Q6HR #28 tab Ciprofloxacin HCl [Cipro] 500 mg PO BID #14 tab Amlodipine [Norvasc*] 5 mg PO DAILY #30 tab Iron Polysaccharide Complex [Polysaccharide Iron] 150 mg PO DAILY #30 tab Physician Discharge Instructions: Physician Discharge Instructions: Patient presented with nonspecific abdominal pain with nausea/vomiting, +diarrhea for 2-3 days, most consistent with acute cystitis complicated by enteritis. CT abd on admission with findings consistent with enteritis with possible bladder distention / cystitis. Leukocytosis 42 on admission. Patient received empiric cefepime / flagyl and had improvement of her symptoms. ID was consulted. Urine culture preliminary grew 3+ staph theatrical variety agent however final results delayed secondary to broken machine and culture had to be sent out to outside facility. Patients diet was slowly advanced and continued to improve. During her hospitalization, patients hemoglobin was noted to drop to 5.7, requiring 1 transfusion of PRBC. Suspect initial 7.9 reading on admission was hemeconcentrated due to hypovolemia. Repeat hemoglobin post transfusion improved to 7.6 and patient did not require any more transfusions during hospitalization. Iron studies this hospitalization consistent with severe iron deficiency anemia. (iron 1.3, tsat% 2.2%) Patient received ~3 bags of IV iron and advised patient to continue oral iron supplementation on discharge. Advised to recheck iron levels in a few months and repeat blood work in ~1 week to monitor hemoglobin/CBC. Patient without any obvious bleeding. Denied bloody stools. Patient did report hx of chronic anemia since the age of 16 and reports infrequent heavy menstrual bleeding. Advised to follow up with PCP for further discussion/management and consider outpatient follow up with gynecology in near future to further evaluate. Medications: Follow up: PCP 3-5 days Please call to schedule / confirm appointments Diet: Regular Activity: Ad malcom Followup: NONE,NONE [Primary Care Provider] - (follow up in 3-5 days. have them repeat your lab.)
[2024-01-02 11:00] VITALS: O2SAT 99
== END 2024-01-02 11:24 | disposition home or self-care (01) | DRG 872 ==
LOC: ER 21:34 → ERHOLD 12-29 01:06 → 4TH 12-29 11:56
PROVIDERS: ADMIT Internal Medicine; ATTEND Internal Medicine
PROC: 30233N1 Transfusion of Nonautologous Red Blood Cells into Peripheral Vein, Percutaneous Approach (ICD-10-PCS; principal; 2023-12-29)
DX: A41.9 Sepsis, unspecified organism (principal); A09 Infectious gastroenteritis and colitis, unspecified; N30.00 Acute cystitis without hematuria; N17.9 Acute kidney failure, unspecified; R65.20 Severe sepsis without septic shock; N92.0 Excessive and frequent menstruation with regular cycle; D50.9 Iron deficiency anemia, unspecified; E86.0 Dehydration; Z79.899 Other long term (current) drug therapy
CPT/HCPCS: 36415; 71046; 74177; 80048; 80053; 81001; 81025; 82728; 83010; 83540; 83605; 83615; 83690; 83735; 84100; 84132; 84443; 84466; 85014; 85018; 85025; 85610; 85730; 86140; 86850; 86900; 86901; 86920; 87040; 87077; 87086; 87088; 87186; 93005; 96361; 96374; 96375; 99285; J0360; J0692; J0696; J2270; J2405; J2916; J7030; J7050; J7121; P9016; Q9967